=== PATIENT | female | born 1990 | race Caucasian/White ===

== ENCOUNTER 2020-02-11 13:28 | Outpatient (RCR) | payer OTHER, SELFPAY ==
--- NOTE | ~2020-02-11 | US_ITS ---
EXAMINATION: US OB BPP wo non-stress DATE: 02/11/2020 14:39 INDICATION: tachycardia in office examination. TECHNIQUE: Real-time pelvic ultrasound was performed. The interpreting radiologist was not present fo r the study. COMPARISON: 09/24/2019 FINDINGS: There is a single living fetus in vertex presentation. The placenta is posterior and not low-lying. heart rate is 146 beats per minute (bpm). Amniotic fluid volume is subjectively normal. Biophysical profile performed by the technologist: breathing (30 sec sustained breathing in 30 minutes): 2 out of 2 movement (3 gross body movements in 30 minutes): 2 out of 2 tone (one episode of hifrrhy-jzazaipal-faqlmdt limb movement): 2 out of 2 Amniotic fluid pocket (2 cm): 2 out of 2 Total score: 8 out of 8 IMPRESSION: 1. Single living fetus in vertex presentation with heart rate of 146 bpm. 2. Biophysical profile 8 out of 8. Reviewed, dictated and finalized at location A.
[2020-02-11 14:21] VITALS: BP 125/80; PULSE 90
--- NOTE | 2020-02-11 14:40 | PC.NURSE ---
Dr Kenney updated on fht's and BPP of 04/08.
== END 2020-03-28 07:44 | disposition home or self-care (01) ==
LOC: ANHOBOP 13:28
PROVIDERS: PCP Family Medicine; Visit Provider Obstetrics & Gynecology Gynecology
DX: O76 Abnormality in fetal heart rate and rhythm complicating labor and delivery (principal); Z3A.32 32 weeks gestation of pregnancy
CPT/HCPCS: 59025; 76819

== ENCOUNTER 2020-03-27 04:47 | Inpatient (IN) | payer OTHER, SELFPAY ==
[2020-03-27] VITALS (62 sets, daily range): BP systolic 110–142; BP diastolic 52–92; PULSE 67–116; RESP 18; TEMP 36.4–37.1; O2SAT 96–100; BMI 30.9
--- NOTE | 2020-03-27 04:58 | LDADM ---
This patient, Candelario Begum, was admitted to Labor/Delivery/Recovery 104 on 03/27/20 at 04:47. Plans for labor, pain management and were discussed with patient. Patient/family oriented to hospital policies and general routines including ID bracelet, bed and alarms, visiting hours, pain management, procedures, bathroom and other care routines, personal items, smoking policy, room service/diet and guest tray routines, infant security routines, and visiting hours. Patient/Family are encouraged to report perceived risks to care and to ask questions if they do not understand what they are told or what they should do. See OBIX for further documentation.
[2020-03-27] MEDS: LACTATED RINGERS 1,000 ML 125 ML IV CONT ×2 (05:20→08:42)
[2020-03-27 05:44] LABS: Basophils Percent Auto 0.2 % (0.2-1.2); Eosinophils Absolute Auto 0.1 K/mm3 (0-0.3); Eosinophils Percent Auto 0.5 % (0-4.4); Hemoglobin 11.2 g/dL (12.0-15.0); Immature Granulocyte Absolute 0.05 K/mm3 (0.00-0.031); Immature Granulocyte Percent A 0.5 % (0-0.5); Lymphocytes Absolute Auto 3.05 K/mm3 (0.9-3.2); Mean Corpuscular Hemoglobin 28.4 pg (26-34); Mean Corpuscular Volume 88.8 fl (80-100); Mean Platelet Volume 12.1 fl (7.4-10.4); Monocytes Absolute Auto 0.7 K/mm3 (0.1-0.6); Monocytes Percent Auto 7.3 % (2.6-8.5); Neutrophils Absolute Auto 6.2 K/mm3 (1.3-6.7); Neutrophils Percent Auto 61.5 % (45.5-73.1); Platelet Count Result 194 k/mm3 (150-375); Red Blood Count 3.94 M/mm3 (4.2-5.4); Red Cell Distribution Width 12.8 % (11.5-14.5); White Blood Count 10.2 K/mm3 (4.5-10.0)
[2020-03-27 06:13] LABS: Glucose Point of Care 111 (65-105)
--- NOTE | 2020-03-27 06:17 | WPDANESEPP ---
Anes - Eval Pre Procedure Procedure: labor epidural Date/Time: 03/27/20 06:17 Surgeon: Herbie Preop Diagnosis: labor pain Pre Op Diagnosis: IOL Patient Data Age: 29 Gender: F Height: 1.68 m Weight: 87 kg Last Vital Signs Pulse 91 03/27/20 06:15 BP 125/73 03/27/20 06:15 Allergies Allergy/AdvReac Type Severity Reaction Status Date / Time Sulfa (Sulfonamide Allergy Intermediate SWELLING,IT Verified 10/05/19 12:47 Antibiotics) BEENA Home Medications Medication Instructions Recorded Confirmed Type PNV cmb#95-ferrous fumarate-FA 1 tablet PO DAILY 03/03/20 03/03/20 History [] insulin NPH isoph U-100 human 26 unit SUBCUT HS 03/03/20 03/03/20 History [Humulin N NPH U-100 Insulin] metformin 500 mg PO DAILY 03/03/20 03/03/20 History Laboratory Tests 03/27/20 03/27/20 03/27/20 05:20 05:20 06:12 WBC 10.2 K/mm3 H K/mm3 (4.5-10.0) RBC 3.94 M/mm3 L M/mm3 (4.2-5.4) Hgb 11.2 g/dL L g/dL (12.0-15.0) Hct 35.0 % L % (37.0-47.0) MCV 88.8 fl fl (80-100) MCH 28.4 pg pg (26-34) MCHC 32.0 g/dl g/dl (32-36) RDW 12.8 % % (11.5-14.5) Plt Count 194 k/mm3 k/mm3 (150-375) MPV 12.1 fl H fl (7.4-10.4) Immature Gran % (Auto) 0.5 % % (0-0.5) Neut % (Auto) 61.5 % % (45.5-73.1) Lymph % (Auto) 30.0 % % (18.3-44.2) [place] % (Auto) 7.3 % % (2.6-8.5) Eos % (Auto) 0.5 % % (0-4.4) Baso % (Auto) 0.2 % % (0.2-1.2) Lymph # (Auto) 3.05 K/mm3 K/mm3 (0.9-3.2) [place] # (Auto) 0.7 K/mm3 H K/mm3 (0.1-0.6) Eos # (Auto) 0.1 K/mm3 K/mm3 (0-0.3) Baso # (Auto) 0.0 K/mm3 K/mm3 (0.0-0.1) Abs Immat Gran (auto) 0.05 K/mm3 H K/mm3 (0.00-0.031) Absolute Neuts (auto) 6.2 K/mm3 K/mm3 (1.3-6.7) Absolute Nucleated RBC 0.0 K/mm3 K/mm3 (0.0-0.012) Nucleated RBC % 0.0 % % (0.0-0.2) POC Capillary Glucose 111 mg/dl H mg/dl (65-105) RPR Pending Patient hx anesthesia problems: none Family hx anesthesia problems: none [facility] Family History Family History Grandparent Diabetes mellitus Social History Social History Smoking status: Never smoker Alcohol intake: current Substance use: never Gender identity (if verbalized by the patient): Female Spiritual care concerns: No Exam Day of Procedure 03/27/20 06:17 Patient weight: overweight Heart: regular rate and rhythm Lungs: clear to auscultation and normal air movement Airway: Mallampati scale class II Neurological: alert and oriented
[2020-03-27] MEDS: OXYTOCIN 30 UNITS/NS 500 ML 30 UNITS/500 ML BAG IV CONT (06:20)
--- NOTE | 2020-03-27 08:22 | WPDOBADMIT ---
Obstetrics - Admit Note Admission Note: record reviewed. No pertinent additions to the history and/or any subsequent changes in the physical findings that are not consistent with the expected course of the were found. Additions to the history and/or subsequent changes in the physical findings follow. Here for MIL. Cervix 3-4/50/-2 AROM with clear fluid. FHTs reactive
[2020-03-27 10:06] LABS: Rapid Plasma Reagin Non-Reactive (NonReactive)
[2020-03-27 10:18] LABS: Glucose Point of Care 97 (65-105)
--- NOTE | 2020-03-27 10:35 | P.PCNOB_ITS ---
OB - Delivery Note Procedure Delivery date: 03/27/20 Procedure: events: Gestational Diabetes (diagnosis 1st trimester-insulin requiring) and Labor Induction Intrapartal events: None Induction method: AROM and per pitocin protocol Delivery monitor: external FHT and external uterine Route of delivery: Laceration description: Perineal - 2nd Degree Delivery repair: vicryl (3-0 ) Specimen: Yes (placenta) Estimated blood loss (mL): 100 Anesthesia type: Epidural Disposition: floor [place] Baby Weeks of gestation at delivery: 39 gender: Male presentation: vertex Placenta delivery description: Spontaneous cord vessel description: 3 Vessels score one minute: 9 score five minutes: 9
--- NOTE | 2020-03-27 10:36 | PM.OBDSVD ---
DS: Admitting Diagnosis Admitting Diagnosis Admitting Diagnosis: IUP 39 wks; GDMA2 OB - DS: Summary OB Procedures : NST OB Procedures Intrapartum: Spontaneous Vag Delivery OB Procedures: : None Peripartum Data Infant Delivery Method: Natural Vaginal Laceration description: Perineal - 2nd Degree complications: none Status at Discharge Functional status at discharge: independent ambulation Overall status at discharge: patient is progressing back to baseline Time Spent with Patient Time attestation: Total time spent providing and/or coordinating discharge services: DS: Data Data Completed and Pending Labs on day of discharge: Labs from last 24 hours 03/27/20 03/27/20 03/27/20 10:15 06:12 05:20 WBC RBC Hgb Hct MCV MCH MCHC RDW Plt Count MPV Immature Gran % (Auto) Neut % (Auto) Lymph % (Auto) [place] % (Auto) Eos % (Auto) Baso % (Auto) Lymph # (Auto) [place] # (Auto) Eos # (Auto) Baso # (Auto) Abs Immat Gran (auto) Absolute Neuts (auto) Absolute Nucleated RBC Nucleated RBC % POC Capillary Glucose 97 111 H RPR Blood Type O Positive Antibody Screen Negative 03/27/20 03/27/20 05:20 05:20 WBC 10.2 H RBC 3.94 L Hgb 11.2 L Hct 35.0 L MCV 88.8 MCH 28.4 MCHC 32.0 RDW 12.8 Plt Count 194 MPV 12.1 H Immature Gran % (Auto) 0.5 Neut % (Auto) 61.5 Lymph % (Auto) 30.0 [place] % (Auto) 7.3 Eos % (Auto) 0.5 Baso % (Auto) 0.2 Lymph # (Auto) 3.05 [place] # (Auto) 0.7 H Eos # (Auto) 0.1 Baso # (Auto) 0.0 Abs Immat Gran (auto) 0.05 H Absolute Neuts (auto) 6.2 Absolute Nucleated RBC 0.0 Nucleated RBC % 0.0 POC Capillary Glucose RPR Non-reactive Blood Type Antibody Screen Discharge Plan Discharge Attending physician on discharge: oLla Stoner Discharging Clinician: Lola Stoner Anticipated Discharge Date/Time: 03/28/20 07:37 Patient Disposition: Home, Self-Care Activity: may shower and pelvic rest Diet: regular Patient Instructions: Antibiotic Form Stand Alone Forms: General Discharge Information Follow-up/Referrals: Lola Stoner MD [Physician] - 6 Weeks Discharge Medications: New norethindrone (contraceptive) 0.35 mg tablet 0.35 mg PO DAILY Qty: 84 RF: 3 Continued PNV cmb#95-ferrous fumarate-FA [] 28 mg iron- 800 mcg Tablet 1 tablet PO DAILY RF: 0 Discontinued metformin 500 mg Tablet 500 mg PO DAILY RF: 0 Humulin N NPH U-100 Insulin 100 unit/mL Suspension 26 unit SUBCUT HS RF: 0 Date of admission: 03/27/20 04:47 Primary Care Provider: Aleks Gutierrez Admitting Provider: Lola Stoner Attending physician on admission: Lola Stoner Condition: Stable
[2020-03-27] MEDS: OXYTOCIN 30 UNITS/NS 500 ML 30 UNITS/500 ML BAG 125 UNITS IV CONT (11:00)
--- NOTE | 2020-03-27 14:05 | OBPPTRN ---
Patient transferred to post room #290 via wheelchair. Support person present. Oriented to unit, room, information board, rooming in, admission packet and security measures. Patient verbalizes understanding.
--- NOTE | 2020-03-27 15:20 | PC.NURSE ---
Upon entering mother has to breast. Mother is able to independently latch infant with appropriate positioning/alignment. was latched correctly. Infant nursed eagerly, with steady draws and frequent swallowing noted. Reviewed signs of a correct latch, effective nursing and suck swallow ratio. was able to maintain latch without discomfort to mother. Reviewed positioning/alignment, holding breast and asymmetrical latch on. Nipple care reviewed. Instructed mother to call out for RN assistance if she is unable to latch infant for feeding or she has discomfort with nursing. Instructed feeding should be initiated three hours from start of last feeding or if feeding cues are noted before. Mother voiced understanding of information shared. Reviewed feeding cues, frequencies, duration of feedings, feeding elimination flow sheet, and signs of adequate intake.
[2020-03-27] MEDS: IBUPROFEN 600 MG TABLET PO (16:33)
[2020-03-27] MEDS: ACETAMINOPHEN 325 MG TABLET 650 MG PO (21:44)
[2020-03-28] MEDS: IBUPROFEN 600 MG TABLET PO (03:04)
[2020-03-28 05:31] LABS: Hematocrit 29.7 % (37.0-47.0); Hemoglobin 9.6 g/dL (12.0-15.0)
[2020-03-28] MEDS: WITCH HAZEL 40 PADS 1 PAD TOPICAL (07:21)
[2020-03-28] MEDS: BENZOCAINE 20% AER SPR (*SP) 56 GM CAN 1 SPRAY TOPICAL (07:21)
[2020-03-28] MEDS: DOCUSATE SODIUM 100 MG CAPSULE PO (07:21)
[2020-03-28] MEDS: LANOLIN (LANSINOH) 7.5 GM CREAM 1 APPLIC TOPICAL (07:21)
[2020-03-28] MEDS: ACETAMINOPHEN 325 MG TABLET 650 MG PO (07:22)
[2020-03-28] MEDS: POLYSACCHARIDE IRON COMPLEX 150 MG CAPSULE PO (07:22)
--- NOTE | 2020-03-28 07:35 | P.PNOB_ITS ---
OB - PN: Subj Subjective Date/time seen: 03/28/20 07:35 Patient comments: no complaints and pain well controlled baby status: doing well [place] feeding status: exclusively breast feeding OB - PN: Obj Data Labs CBC & Chem 7: 03/28/20 05:17 Labs: Laboratory Results - last 24 hr 03/27/20 03/27/20 03/28/20 05:20 10:15 05:17 Hgb 9.6 L Hct 29.7 L POC Capillary Glucose 97 RPR Non-reactive OB - PN A/P Plan day: 1 Plan: routine care, discharge home and follow up 6 weeks Comments: Plans POP for bc Time Spent With Patient Time: Total time spent is greater than 50% in coordination of care (as documented) at patient's floor/unit and/or counseling patient: Exam : Bimanual exam- vagina & uterus: other (Uterus firm, nt @U)
[2020-03-28 07:47] VITALS: BP 121/76; PULSE 79; RESP 18; TEMP 36.6
--- NOTE | 2020-03-28 09:46 | WPDANLDPN2 ---
Anes-Prog Note L&D Date/Time: 03/28/20 09:46 Comfortable throughout: labor Epidural/Spinal procedure site: clean & non-tender Neuro status: Neuro function grossly intact. Cardiovascular status: normal Respiratory status: normal Airway patency: baseline Mental status: baseline Post-Op hydration status: normal Vital Signs: Last Vital Signs Temp 36.6 C 03/28/20 07:47 Pulse 79 03/28/20 07:47 Resp 18 03/28/20 07:47 BP 121/76 03/28/20 07:47 Pulse Ox 96 03/27/20 20:20 Post-procedural complaints: none Patient feedback: Patient satisfied with anesthetic care.
--- NOTE | 2020-03-28 10:45 | PC.NURSE ---
Patient viewed the discharge video Mother & Baby Care, The First Two Weeks . Patient was given the opportunity and encouraged to ask questions. Patient verbalized understanding of information shared and has been given the mother/baby guide for home reference.
--- NOTE | 2020-03-28 11:20 | PC.NURSE ---
Self care and infant care discharge instructions given including follow up visit date and time. Pt. verbalized understanding. No questions or concerns voiced. Very pleasant and cooperative. FOB at side.
--- NOTE | 2020-03-28 12:30 | PC.NURSE ---
Mother is able to independently latch infant with appropriate positioning/alignment. She denies any nipple discomfort, is feeding as required and waking to feed if needed. has had at least 8 effective feedings in the past 24 hours, and is currently meeting outcomes for weight, output, jaundice and feeding frequencies. Mother states she feels confident to continue effective at home. Mother wished to review supplementation, should she choose to. Mother pumped and bottle fed first child and may switch, reporting this feels like more work than pumping. Reviewed transition to breast milk, signs of adequate intake, and engorgement/relief. Instructed to call ICP if intake/output less than required. Reviewed regular medications mother is taking. Information provided per Renee. Reviewed community resources on the [facility] website and in the Mom/Baby guide. Information on outpatient services provided. Mother has no further questions at this time.
[2020-03-29 14:35] VITALS: BP 126/87; PULSE 94; RESP 18; TEMP 37; O2SAT 99
== END 2020-03-28 13:13 | disposition home or self-care (01) | DRG 807 ==
LOC: ANHLDR 10:38 → ANHOB2 14:04
PROVIDERS: Admitting Provider Obstetrics & Gynecology Gynecology; PCP Family Medicine; Visit Provider Obstetrics & Gynecology Gynecology
DX: O24.424 Gestational diabetes mellitus in childbirth, insulin controlled (principal); Z37.0 Single live birth; O70.1 Second degree perineal laceration during delivery; O69.81X0 Labor and delivery complicated by cord around neck, without compression, not applicable or unspecified; Z3A.39 39 weeks gestation of pregnancy
CPT/HCPCS: 36415; 85014; 85018; 85025; 86592; 86850; 86900; 86901; 88307; A9270; J2590; J2795; J7120

== ENCOUNTER → 2023-08-05 14:43 | Outpatient (CLI) | payer OTHER, SELFPAY ==
--- NOTE | ~2023-08-05 | US_ITS ---
EXAMINATION: US OB transvaginal DATE: 08/05/2023 15:20 INDICATION: Uncertain dates Comparison:No prior studies for comparison. TECHNIQUE: Multiple transabdominal and endovaginal sonographic images of the pelvis performed. FINDINGS: The uterus measures 7.3 x 4.7 x 5.8 cm. The endometrial complex measures 8 mm. Uterus retro verted. No intrauterine is identified. The right ovary measures 2.7 x 1.4 x 2.5 cm and the left ovary measures 3.2 x 3.1 x 3.4 cm. There ar e small follicles in each ovary. There is a complex left ovarian partially cystic mass measuring 2.1 cm Normal doppler signal in both ovaries. There is free fluid in the pelvis. There are no abnormal masses seen on either side. IMPRESSION: 1. No evidence for intrauterine . Considerations include very early intrauterine ,, failed and ectopic . Recommend follow-up with serial quantitative beta-hCG levels and ultrasound as clinically indicated. 2: Complex left ovarian mass measuring 2.1 x 1.8 x 1.7 cm, likely an involuting corpus luteal cyst. Reviewed, dictated and finalized at location B. OSOFT BI CONSULTANT IMPRESSION: 1. No evidence for intrauterine . Considerations include very early in trauterine ,, failed and ectopic . Recommend follow -up with serial quantitative beta-hCG levels and ultrasound as clinically indic ated. 2: Complex left ovarian mass measuring 2.1 x 1.8 x 1.7 cm, likely an involutin g corpus luteal cyst.
== END ==
PROVIDERS: PCP Obstetrics & Gynecology Gynecology; Visit Provider Obstetrics & Gynecology Gynecology
DX: Z36.87 Encounter for antenatal screening for uncertain dates (principal); N83.202 Unspecified ovarian cyst, left side
CPT/HCPCS: 76817

== ENCOUNTER → 2023-08-18 12:47 | Outpatient (CLI) | payer OTHER, SELFPAY ==
--- NOTE | ~2023-08-18 | US_ITS ---
EXAMINATION: US OB transvaginal DATE: 08/18/2023 13:20 INDICATION: First trimester dating TECHNIQUE: Real-time pelvic transvaginal ultrasound was performed. COMPARISON: None. FINDINGS: The uterus measures 7.9 x 5.4 x 5.6 cm. There is an intrauterine gestational sac. A yolk sa c is identified. heart motion is identified measuring 169 beats per minute (bpm) by M-mode Dopp ler. The crown rump length measures 3 mm, which correlates with an estimated gestational age of 5 weeks and 6 day(s) (+/-) 4 day(s). The right ovary measures 2.2 x 1.2 x 2.9 cm. The left ovary measures 3.8 x 3.0 x 3.1 cm. There is nor mal vascular flow in the ovaries. There is a small amount of free fluid in the pelvis. IMPRESSION: 1. Live intrauterine with an estimated gestational age of 5 weeks and 6 day(s) (+/-) 4 day( s) and an estimated delivery date of 04/13/2024. Reviewed, dictated and finalized at location B. TRUCK OPERATOR IMPRESSION: 1. Live intrauterine with an estimated gestational age of 5 weeks and 6 day(s) (+/-) 4 day(s) and an estimated delivery date of 04/13/2024.
== END ==
PROVIDERS: PCP Obstetrics & Gynecology Gynecology; Visit Provider Obstetrics & Gynecology Gynecology
DX: Z36.87 Encounter for antenatal screening for uncertain dates (principal)
CPT/HCPCS: 76817

== ENCOUNTER 2023-11-20 13:38 | Outpatient (CLI) | payer BC, SELFPAY ==
--- NOTE | ~2023-11-20 | US_ITS ---
EXAMINATION: US OB /maternal detail DATE: 11/20/2023 14:14 INDICATION: Second trimester anatomic survey TECHNIQUE: Real-time ultrasound of the pelvis was performed. COMPARISON: None. FINDINGS: There is a single living fetus in vertex presentation. The placenta is posterior and 3.9 cm from the internal cervical os. Measured cervical length is 3.9 cm. heart rate is 150 beats per minute (b pm). cardiac activity and movement are noted. The amniotic fluid index is subjectively n ormal. The following anatomy was identified as normal: 4 chamber heart 3 vessel cord cord insertion kidneys urinary bladder stomach spine diaphragm ventricles cisterna magna cerebellum The following biometric data were obtained: Biparietal diameter (BPD): 4.5 cm; head circumference (HC): 17.2 cm; abdominal circumference (AC): 13 .9 cm; femur length (FL): 2.8 cm. These measurements are concordant. Estimated weight is 278 g +/- 41 g, which correlates with the 39th percentile when 04/13/2024 is used as estimated date of delivery. As single measurements, these parameters are each equal to the following estimated gestational ages w ith ranges of +/- 2 standard deviations: BPD: 19 weeks 4 days ( 17 weeks 6 days - 21 weeks 2 days). HC: 19 weeks 5 days ( 19 weeks 2 days - 21 weeks 2 days). AC: 19 weeks 3 days ( 17 weeks 2 days - 21 weeks 3 days). FL: 19 weeks 6 days ( 17 weeks 0 days - 20 weeks 4 days). estimated gestational age based solely on measurements from this exam is 19 weeks 3 days +/- 1 weeks 3 days. IMPRESSION: 1. Single living fetus in vertex presentation. 2. Estimated weight is 278 g +/- 41 g, which correlates with the 39th percentile when 04/13/2024 is used as estimated date of delivery. Reviewed, dictated and finalized at location F. IMPRESSION: 1. Single living fetus in vertex presentation. 2. Estimated weight is 278 g +/- 41 g, which correlates with the 39th per centile when 04/13/2024 is used as estimated date of delivery.
== END 2023-11-20 13:39 ==
PROVIDERS: PCP Advanced Practice Midwife; Visit Provider Advanced Practice Midwife
DX: Z36.9 Encounter for antenatal screening, unspecified (principal)
CPT/HCPCS: 76805

== ENCOUNTER 2024-02-13 12:40 | Outpatient (CLI) | payer BC, SELFPAY ==
--- NOTE | ~2024-02-13 | US_ITS ---
LIMITED OBSTETRIC ULTRASOUND Ordering provider: Dian Brooks CNM History: . Gestational diabetes mellitus in , diet controlled . Comparison: None. FINDINGS/impression: Single fetus. PRESENTATION: ` Vertex. Longitudinal lie. PLACENTAL LOCATION: Posterior. No previa. HEART RATE: 131 bpm (normal is between 110 to 160 bpm). AMNIOTIC FLUID INDEX: 14.3 cm. Largest vertical pocket is cm. Largest pocket is 4.4 cm. OTHER: Maternal ovaries not visualized. Reviewed, dictated and finalized at location A.
== END 2024-02-13 12:41 ==
PROVIDERS: PCP Advanced Practice Midwife; Visit Provider Advanced Practice Midwife
DX: O24.410 Gestational diabetes mellitus in pregnancy, diet controlled (principal); Z3A.00 Weeks of gestation of pregnancy not specified
CPT/HCPCS: 76816

== ENCOUNTER 2024-03-15 10:11 | Outpatient (CLI) | payer BC, SELFPAY ==
--- NOTE | ~2024-03-15 | US_ITS ---
EXAMINATION: US OB follow up DATE: 03/15/2024 10:35 INDICATION: Maternal gestational diabetes during third trimester TECHNIQUE: Real-time ultrasound of the pelvis was performed. The interpreting radiologist was not pre sent for the study. COMPARISON: None. FINDINGS: There is a single living fetus in vertex presentation. The placenta is posterior fundal and not low- lying. heart rate is 139 beats per minute (bpm). The amniotic fluid index is 11.8 cm, which is normal (5th%-95%: 7.9-24.9 cm at 35 weeks estimated gestational age). The following biometric data were obtained: BPD: 9.0 cm -> 36 weeks 3 days Head circumference: 32.2 cm -> 36 weeks 2 days Abdominal circumference: 62.0 cm -> 36 weeks 0 days Femur length: 6.9 cm -> 35 weeks 4 days These measurements are concordant. Head circumference to abdominal circumference ratio: 1.00 (normal range 0.92-1.08). Estimated weight: 2808 g (+/-) 421 g or 6 lbs. 3 oz. (+/-) 15 oz. IMPRESSION: 1. Single living fetus in vertex presentation with heart rate of 139 bpm. 2. Normal amniotic fluid index of 11.8 cm. 3. Estimated weight is 53rd percentile by Hadlock criteria when 04/13/2024 is used as the estima argenis date of delivery (VINCENZO). Please correlate with clinical information or earlier ultrasounds for mos t accurate VINCENZO. Reviewed, dictated and finalized at location A. IMPRESSION: 1. Single living fetus in vertex presentation with heart rate of 139 bpm. 2. Normal amniotic fluid index of 11.8 cm. 3. Estimated weight is 53rd percentile by Hadlock criteria when 04/13/2024 is used as the estimated date of delivery (VINCENZO). Please correlate with clinica l information or earlier ultrasounds for most accurate VINCENZO.
== END 2024-03-15 10:12 ==
PROVIDERS: PCP Family Medicine; Visit Provider Advanced Practice Midwife
DX: O24.410 Gestational diabetes mellitus in pregnancy, diet controlled (principal)
CPT/HCPCS: 76816

== ENCOUNTER 2024-04-01 05:08 | Inpatient (IN) | payer BC, SELFPAY ==
[2024-04-01] VITALS (139 sets, daily range): BP systolic 66–141; BP diastolic 15–84; PULSE 66–160; RESP 18; TEMP 36.3–36.7; O2SAT 96–100; BMI 31.8
--- NOTE | 2024-04-01 05:43 | LDADM ---
This patient, Candelario Begum, was admitted to Labor/Delivery/Recovery 106 on 04/01/24 at 05:08. Plans for labor, pain management and were discussed with patient. Patient/family oriented to hospital policies and general routines including ID bracelet, bed and alarms, visiting hours, pain management, procedures, bathroom and other care routines, personal items, smoking policy, room service/diet and guest tray routines, infant security routines, and visiting hours. Patient/Family are encouraged to report perceived risks to care and to ask questions if they do not understand what they are told or what they should do. See OBIX for further documentation.
[2024-04-01] MEDS: OXYTOCIN 30 UNITS/NS 500 ML 30 UNITS/500 ML BAG IV CONT (06:26)
[2024-04-01] MEDS: LACTATED RINGERS 1,000 ML 125 ML IV CONT ×2 (06:27→10:29)
[2024-04-01 06:28] LABS: Glucose Point of Care 117 mg/dl (65-105)
[2024-04-01 06:36] LABS: Basophils Percent Auto 0.1 % (0.2-1.2); Eosinophils Absolute Auto 0.1 K/mm3 (0-0.3); Eosinophils Percent Auto 0.7 % (0-4.4); Hematocrit 34.1 % (37.0-47.0); Hemoglobin 11.7 g/dL (12.0-15.0); Immature Granulocyte Absolute 0.05 K/mm3 (0.00-0.031); Immature Granulocyte Percent A 0.7 % (0-0.5); Lymphocytes Absolute Auto 1.78 K/mm3 (0.9-3.2); Lymphocytes Percent Auto 24.6 % (18.3-44.2); Mean Corpuscular HGB Conc 34.3 g/dl (32-36); Mean Corpuscular Hemoglobin 31.9 pg (26-34); Mean Corpuscular Volume 92.9 fl (80-100); Mean Platelet Volume 11.2 fl (7.4-10.4); Monocytes Absolute Auto 0.5 K/mm3 (0.1-0.6); Monocytes Percent Auto 7.4 % (2.6-8.5); Neutrophils Absolute Auto 4.8 K/mm3 (1.3-6.7); Neutrophils Percent Auto 66.5 % (45.5-73.1); Platelet Count Result 161 k/mm3 (150-375); Red Blood Count 3.67 M/mm3 (4.2-5.4); Red Cell Distribution Width 13.3 % (11.5-14.5); White Blood Count 7.3 K/mm3 (4.5-10.0)
[2024-04-01 07:33] LABS: HIV 1/2 Ab P24 Ag Result Negative (Negative)
--- NOTE | 2024-04-01 08:39 | WPDOBADMIT ---
Obstetrics - Admit Note Admission Note: record reviewed. No pertinent additions to the history and/or any subsequent changes in the physical findings that are not consistent with the expected course of the were found. Additions to the history and/or subsequent changes in the physical findings follow. None.
--- NOTE | 2024-04-01 08:39 | PM.OBPNLAB ---
Pain Control Date/time seen: 04/01/24 08:25 Pain control: tolerating well Contractions Monitor mode: External Contraction frequency: 3 (2.5-6) Contraction duration: 50 (40-60) Contraction pattern: Irregular Contraction phase: Contraction Contraction intensity: Moderate Status status: Category l Assessment and Plan Pitocin rate (mU/min): 4 Assessment: induction ongoing Plan: continuous present management Comments: CMM to bedside. Discussed plan of care and IOL process. Pt desires epidural placement prior to amniotomy. All questions answered. Anticipate vaginal .
--- NOTE | 2024-04-01 09:22 | WPDANESEPP ---
Anes - Eval Pre Procedure Procedure: labor epidural Date/Time: 04/01/24 09:22 Surgeon: jenaro Preop Diagnosis: labor pain Pre Op Diagnosis: IOL Patient Data Age: 33 Gender: F Height: 1.65 m Weight: 87 kg Last Vital Signs Pulse 83 04/01/24 09:15 BP 117/74 04/01/24 09:15 Pulse Ox 96 04/01/24 05:29 O2 Del Method Room Air 04/01/24 07:41 Allergies Allergy/AdvReac Type Severity Reaction Status Date / Time Sulfa (Sulfonamide Allergy Intermediate SWELLING,IT Verified 04/01/24 05:48 Antibiotics) BEENA Home Medications Medication Instructions Recorded Confirmed Type vit no.95-ferrous 1 tablet PO DAILY 03/03/20 03/03/20 History fumarate 28 mg-folic acid 800 mcg tablet () norethindrone (contraceptive) 0.35 0.35 mg PO DAILY #84 tabs 03/28/20 Rx mg tablet insulin NPH isoph U-100 human 100 6 unit subcut 04/01/24 History unit/mL (3 mL) subcutaneous pen (Novolin N FlexPen) Laboratory Tests 04/01/24 04/01/24 06:24 06:30 WBC 7.3 K/mm3 (4.5-10.0) RBC 3.67 L M/mm3 (4.2-5.4) Hgb 11.7 L g/dL (12.0-15.0) Hct 34.1 L % (37.0-47.0) MCV 92.9 fl (80-100) MCH 31.9 pg (26-34) MCHC 34.3 g/dl (32-36) RDW 13.3 % (11.5-14.5) Plt Count 161 k/mm3 (150-375) MPV 11.2 H fl (7.4-10.4) Immature Gran % (Auto) 0.7 H % (0-0.5) Neut % (Auto) 66.5 % (45.5-73.1) Lymph % (Auto) 24.6 % (18.3-44.2) [place] % (Auto) 7.4 % (2.6-8.5) Eos % (Auto) 0.7 % (0-4.4) Baso % (Auto) 0.1 L % (0.2-1.2) Lymph # (Auto) 1.78 K/mm3 (0.9-3.2) [place] # (Auto) 0.5 K/mm3 (0.1-0.6) Eos # (Auto) 0.1 K/mm3 (0-0.3) Baso # (Auto) 0.0 K/mm3 (0.0-0.1) Abs Immat Gran (auto) 0.05 H K/mm3 (0.00-0.031) Absolute Neuts (auto) 4.8 K/mm3 (1.3-6.7) Absolute Nucleated RBC 0.000 K/mm3 (0.0-0.012) Nucleated RBC % 0.0 % (0.0-0.2) POC Capillary Glucose 117 H mg/dl (65-105) RPR Pending HIV 1&2 Ab/P24 Ag 4thGn Negative (Negative) Blood Type O Positive Antibody Screen Negative : gestational age (VINCENZO 04/08/24) Patient hx anesthesia problems: none Family hx anesthesia problems: none Results Review: All pre-operative results and documents have been reviewed as part of the pre-operative evaluation. [facility] Family History Family History Grandparent Diabetes mellitus Social History Social History Smoking status: Never smoker Alcohol intake: current Substance use: never Do You Feel Safe in your Home?: Yes Lack of Transportation: No Lack of Food: Never True Current Housing: I Have Housing Concerned About Future Housing: No Difficulty Paying Gas/Electric Bills: No Difficulty Paying for Meds: No Currently Unemployed: No Education: Associate Degree Difficulty w/ Childcare or Family Care: No Gender identity (if verbalized by the patient): Female Spiritual care concerns: No Exam Day of Procedure 04/01/24 09:22 Heart: regular rate and rhythm Lungs: normal air movement Neurological: alert and oriented
--- NOTE | 2024-04-01 09:25 | PM.OBPNLAB ---
Pain Control Date/time seen: 04/01/24 09:23 Pain control: tolerating well Comments: Feeling regular contractions. Increasing in intensity. Requesting epidural placement. Pelvic Exam Dilation (cm): 3 Effacement (%): 50 station: -2 Amniotic membrane status: Intact Comments: head well applied to cervix. Contractions Monitor mode: External Contraction frequency: 3 (2.5-6) Contraction duration: 60 Contraction pattern: Irregular Contraction phase: Contraction Contraction intensity: Moderate Status status: Category l Assessment and Plan Pitocin rate (mU/min): 4 Assessment: induction ongoing Comments: CNM to bedside. Discussed plan of care and option for amniotomy. Discussed risks, benefits, and expectations of breaking water. Patient is agreeable. Amniotomy performed and there was a small return of clear amniotic fluid. Patient tolerated procedure well. Pitocin decreased to 2ml/hr. If pt has active labor in near future plan to discontinue pitocin.
[2024-04-01 10:26] LABS: Glucose Point of Care 84 mg/dl (65-105)
[2024-04-01 10:33] LABS: Rapid Plasma Reagin Non-Reactive (NonReactive)
[2024-04-01 13:35] LABS: Glucose Point of Care 81 mg/dl (65-105)
--- NOTE | 2024-04-01 14:26 | PM.OBPRVD ---
OB - Vaginal Delivery Note Procedure Delivery date: 04/01/24 Events: Gestational Diabetes (GDMA2) Induction method: Per Pitocin Protocol Delivery augmentation: Rupture of Membranes Delivery monitor: External FHT and External Uterine Route of delivery: Episiotomy description: None Laceration Description: Perineal - 2nd Degree Delivery repair: vicryl Specimen: Yes (placenta) Quantitative Blood Loss (ml): 375 Anesthesia type: Epidural Disposition: Floor Complications: No immediate complications Narrative: Candelario Arrived for induction of labor secondary to GDM A2. Her labor was started with Pitocin and amniotomy was performed. She received an epidural for analgesia after which she progressed quickly to complete dilation. She pushed a few times and brought the head to complete crown. After the delivery of the head, there was excellent restitution observed. There is smooth delivery of both the anterior and posterior shoulders followed by the remainder of the infant. The infant was placed on the maternal abdomen and dried and stimulated by the nursery staff. After 1 minute of life, the cord was doubly clamped and cut. Cord gases, cord blood, and cord segment were obtained. A second-degree perineal laceration was repaired in the usual fashion. The placenta delivered spontaneously and was found to be intact. There was excellent hemostasis and uterine tone. All delivery counts correct. Mother and baby skin to skin in the delivery room. Baby Date of : 04/01/24 Time of : 14:02 Gestational Age by Date: 39 Infant gender: Female Weight (pounds): 0 (infant weight unavailable at the time of note) presentation: vertex position: Right Occiput Anterior Placenta delivery description: Spontaneous Cord Vessel Description: 3 Vessels and Delayed Cord Clamping score one minute: 8 score five minutes: 9
--- NOTE | 2024-04-01 14:35 | PM.OBDSVD ---
DS: Admitting Diagnosis Discharge Date 04/02/24 Admitting Diagnosis 33 y.o. GDMA2 IOL at term DS: Discharge Diagnosis Discharge Diagnosis (1) (normal spontaneous vaginal delivery): Code(s): O80 - Encounter for full-term uncomplicated delivery Status: Acute (2) Mother currently breastfeeds: Status: Acute OB - DS: Summary Hospital Course Hospital Course: Uncomplicated OB Procedures : NST and Ultrasound OB Procedures Intrapartum: Spontaneous Vag Delivery OB Procedures: : None Peripartum Data Delivery Method: Natural Vaginal Laceration Description: Perineal - 2nd Degree Episiotomy description: None complications: none Status at Discharge Functional status at discharge: independent ambulation Overall status at discharge: patient is progressing back to baseline Time Spent with Patient Time attestation: Total time spent providing and/or coordinating discharge services: Exam Narrative: Alert and oriented. Mood is pleasant and cooperative. Perineum with minimal edema. Fundus firm and below umbilicus. Const: General: cooperative, healthy appearing, no acute distress and alert Orientation/consciousness: patient oriented x3 Limitations: no limitations Resp: Effort & Inspection: normal respiratory effort and able to speak in complete sentences Auscultation: clear to auscultation bilaterally Cardio: Rate: regular rate GI: Inspection: normal to inspection Auscultation: normal bowel sounds : General: Yes bladder normal to palpation External Female Exam: other (lochia WNL) Bimanual exam- vagina & uterus: bladder normal to palpation Other: Fundus firm and below U Skin: General skin exam: normal color and no rashes or lesions noted Neuro: General: patient oriented x3 and moves all extremities Cognition (Neuro): normal cognition Extrem: General: normal to inspection and no calf tenderness Psych: Appearance: grossly normal Mental Status: mental status grossly normal Affect: normal affect Thought process: Normal thought process present DS: Data Data Completed and Pending Labs on day of discharge: Labs from last 24 hours 04/01/24 04/01/24 04/01/24 13:33 10:23 06:30 WBC 7.3 RBC 3.67 L Hgb 11.7 L Hct 34.1 L MCV 92.9 MCH 31.9 MCHC 34.3 RDW 13.3 Plt Count 161 MPV 11.2 H Immature Gran % (Auto) 0.7 H Neut % (Auto) 66.5 Lymph % (Auto) 24.6 Daniels % (Auto) 7.4 Eos % (Auto) 0.7 Baso % (Auto) 0.1 L Lymph # (Auto) 1.78 Daniels # (Auto) 0.5 Eos # (Auto) 0.1 Baso # (Auto) 0.0 Abs Immat Gran (auto) 0.05 H Absolute Neuts (auto) 4.8 Absolute Nucleated RBC 0.000 Nucleated RBC % 0.0 POC Capillary Glucose 81 84 RPR Non-reactive HIV 1&2 Ab/P24 Ag 4thGn Negative Blood Type O Positive Antibody Screen Negative 04/01/24 06:24 WBC RBC Hgb Hct MCV MCH MCHC RDW Plt Count MPV Immature Gran % (Auto) Neut % (Auto) Lymph % (Auto) Daniels % (Auto) Eos % (Auto) Baso % (Auto) Lymph # (Auto) Daniels # (Auto) Eos # (Auto) Baso # (Auto) Abs Immat Gran (auto) Absolute Neuts (auto) Absolute Nucleated RBC Nucleated RBC % POC Capillary Glucose 117 H RPR HIV 1&2 Ab/P24 Ag 4thGn Blood Type Antibody Screen Discharge Plan Discharge Attending physician on discharge: Lola Stoner Discharging Clinician: Dian Brooks Anticipated Discharge Date/Time: 04/02/24 14:30 Patient Disposition: Home, Self-Care Activity: pelvic rest Diet: as tolerated and regular Discharge Instructions: Continue taking your vitamin and any other supplements as previously directed (Examples: Iron, Vitamin D). You may take Tylenol 1000mg over the counter every 6 hours as needed for pain. Do not exceed 4000mg of Tylenol daily. You may continue using tucks pads and dermoplast spray if needed for a few more days.
[2024-04-01] MEDS: OXYTOCIN 30 UNITS/NS 500 ML 30 UNITS/500 ML BAG 125 UNITS IV CONT (14:37)
--- NOTE | 2024-04-01 17:45 | PC.NURSE ---
Patient transferred to post room #291 via wheelchair. Support person present. Oriented to unit, room, information board, rooming in, admission packet and security measures. Patient verbalizes understanding.
[2024-04-01] MEDS: IBUPROFEN 600 MG TABLET PO (18:01)
[2024-04-01] MEDS: ACETAMINOPHEN 325 MG TABLET 650 MG PO (22:06)
[2024-04-02 00:11] VITALS: BP 114/72; PULSE 87; RESP 16; TEMP 37.1; O2SAT 99
[2024-04-02] MEDS: IBUPROFEN 600 MG TABLET PO ×2 (01:04→09:57)
[2024-04-02 04:19] LABS: Glucose Point of Care 84 mg/dl (65-105)
[2024-04-02] MEDS: ACETAMINOPHEN 325 MG TABLET 650 MG PO (06:02)
[2024-04-02 06:57] LABS: Hematocrit 33.8 % (37.0-47.0); Hemoglobin 10.8 g/dL (12.0-15.0)
--- NOTE | 2024-04-02 07:41 | P.PNOB_ITS ---
OB - PN: Subj Subjective Date/time seen: 04/02/24 07:41 Interval history: Doing well. Urinating without difficulty. Denies passing any large clots. Denies dizziness with ambulating. Tolerating po food and fluids. Bonding with infant. well. Patient comments: pain well controlled baby status: doing well and nursing well feeding status: exclusively breast feeding OB - PN: Obj Data Labs 04/02/24 04:14 Labs: Laboratory Results - last 24 hr 04/01/24 04/01/24 04/01/24 06:30 10:23 13:33 Hgb Hct POC Capillary Glucose 84 81 RPR Non-reactive 04/02/24 04/02/24 04:08 04:14 Hgb 10.8 L Hct 33.8 L POC Capillary Glucose 84 RPR OB - PN A/P Assessment and Plan (1) Mother currently breastfeeds: Status: Acute (2) (normal spontaneous vaginal delivery): Code(s): O80 - Encounter for full-term uncomplicated delivery Status: Acute Plan day: 1 Plan: discharge home Time Spent With Patient Time: Total time spent is greater than 50% in coordination of care (as documented) at patient's floor/unit and/or counseling patient: Review of Systems Review of Systems: All systems reviewed & are unremarkable except as noted in HPI and below Exam Narrative: Alert and oriented. Mood is pleasant and cooperative. Perineum with minimal edema. Fundus firm and below umbilicus. Const: General: cooperative, healthy appearing, no acute distress and alert Orientation/consciousness: patient oriented x3 Limitations: no limitations Resp: Effort & Inspection: normal respiratory effort and able to speak in complete sentences Auscultation: clear to auscultation bilaterally Cardio: Rate: regular rate GI: Inspection: normal to inspection Auscultation: normal bowel sounds : General: Yes bladder normal to palpation External Female Exam: other (l ochia WNL) Bimanual exam- vagina & uterus: bladder normal to palpation Other: Fundus firm and below U Skin: General skin exam: normal color and no rashes or lesions noted Neuro: General: patient oriented x3 and moves all extremities Cognition (Neuro): normal cognition Extrem: General: normal to inspection and no calf tenderness Psych: Appearance: grossly normal Mental Status: mental status grossly normal Affect: normal affect Thought process: Normal thought process present
[2024-04-02 08:20] VITALS: BP 121/68; PULSE 70; RESP 16; TEMP 36.3; O2SAT 99
--- NOTE | 2024-04-02 10:31 | PC.NURSE ---
Consulted with mother concerning needs and she shared her ability to independently latch infant optimally without pain. Mother is feeding appropriately for growth of and understands stimulating to eat if needed. Infant has had appropriate feedings in the last 24 hours meets the outcomes for weight, output, blood sugar and jaundice at this time. Reinforced understanding of milk production, transition of milk, signs of adequate intake, transition of stool, prevention/relief of engorgement, plugged ducts, mastitis, responsive watching for feeding cues, the different methods of stimulating to breastfeed 1-3 hours after the start of the last feeding, community resources, and when to call a provider using the resource of the feeding sheet along with the mom and baby guide. Mother voiced understanding of the information shared, is confident to continue effectively her infant at home, when to call for assistance, denies any additional assistance or education at this time. Reported to the Primary RN.
--- NOTE | 2024-04-02 11:23 | WPDANLDPN2 ---
Anes-Prog Note L&D Date/Time: 04/02/24 11:23 Neuro status: Neuro function grossly intact. Cardiovascular status: normal Respiratory status: normal Airway patency: baseline Mental status: baseline Post-Op hydration status: normal Vital Signs: Last Vital Signs Temp 36.3 C L 04/02/24 08:20 Pulse 70 04/02/24 08:20 Resp 16 04/02/24 08:20 BP 121/68 04/02/24 08:20 Pulse Ox 99 04/02/24 08:20 O2 Del Method Room Air 04/02/24 08:17 Pain score (VAS): 0 I/O: Intake & Output 04/01/24 04/02/24 04/02/24 23:59 07:59 15:59 Intake Total 500 Output Total 400 Balance 100 Post-procedural complaints: none Patient feedback: Patient satisfied with anesthetic care.
[2024-04-02 12:56] VITALS: BP 109/62; PULSE 79; RESP 16; TEMP 37.3; O2SAT 98
[2024-04-05 10:04] VITALS: BP 135/76; PULSE 84; RESP 16; TEMP 36.8; O2SAT 99
== END 2024-04-02 17:26 | disposition home or self-care (01) | DRG 807 ==
LOC: ANHLDR 14:37 → ANHOB2 17:46
PROVIDERS: Admitting Provider Obstetrics & Gynecology Gynecology; PCP Family Medicine; Referring Provider Advanced Practice Midwife; Visit Provider Obstetrics & Gynecology Gynecology
DX: O24.429 Gestational diabetes mellitus in childbirth, unspecified control (principal); Z37.0 Single live birth; Z3A.39 39 weeks gestation of pregnancy; O70.1 Second degree perineal laceration during delivery; O62.3 Precipitate labor
CPT/HCPCS: 36415; 82948; 85014; 85018; 85025; 86592; 86703; 86850; 86900; 86901; 88307; A9270; G0432; J2590; J2795; J7120